=== PATIENT | female | born 1950 | race Caucasian/White ===

== ENCOUNTER 2018-04-01 06:06 | Observation (INO) ==
[2018-04-01] MEDS ORDERED: ceFAZolin Inj 1 GM in Sodium Chlor 0.9% Inj 100 ML IV.SIG SCH (07:00)
[2018-04-01] MEDS ORDERED: Heparin - SQ 10,000 UNITS/ML Vial SQ SCH (07:00)
[2018-04-01] MEDS ORDERED: Heparin - SQ 10,000 UNITS/ML Vial ONE (07:07)
[2018-04-01] MEDS ORDERED: Sodium Chlor 0.9% Inj 100 ML ONE (07:07)
[2018-04-01] MEDS ORDERED: ceFAZolin Inj 1 GM Vial (Addvantage) IV.SIG ONE (07:07)
[2018-04-01] MEDS ORDERED: Chlorhexidine Gluconate 2% 1 Pack (2 Cloths) TOPICAL ONE (07:30)
[2018-04-01] MEDS ORDERED: Metoprolol Tartrate 25 MG Tablet PO ONE (07:30)
[2018-04-01] MEDS ORDERED: Sodium Chlor 0.9% Inj 500 ML IV.CONT ONE (07:30)
[2018-04-01] MEDS ORDERED: Sugammadex Inj 200 MG/2 ML Vial IV.PUSH ONE (07:38)
[2018-04-01] MEDS ORDERED: Lidocaine 1%/Epinephrine 1:100,000 Inj 30 ML Vial ONE (07:58)
[2018-04-01] MEDS ORDERED: LORazepam 0.5 MG Tablet PO PRN (12:59)
[2018-04-01] MEDS ORDERED: fentaNYL Citrate Inj 100 MCG/2 ML Ampul ONE (13:23)
[2018-04-01] MEDS ORDERED: Morphine Inj 4 MG/ML Vial ONE (13:24)
[2018-04-01] MEDS ORDERED: KCL 20 mEq/D5W/NaCl 0.45% Inj 1,000 ML ONE (13:48)
[2018-04-01] MEDS: KCL 20 mEq/D5W/NaCl 0.45% Inj 1,000 ML IV.CONT SCH (14:00)
[2018-04-01] MEDS ORDERED: Ketorolac Inj 30 MG/ML (IVP) Vial ONE (14:55)
[2018-04-01] MEDS ORDERED: Ketorolac Inj 30 MG/ML (IVP) Vial IV.PUSH SCH (15:00)
[2018-04-01] MEDS ORDERED: *Meperidine Inj 25 MG/ML Vial PERIprocedural Use ONLY ONE (15:06)
[2018-04-01] MEDS: Ketorolac Inj 30 MG/ML (IVP) Vial IV.PUSH SCH (17:57)
[2018-04-02] MEDS: Ketorolac Inj 30 MG/ML (IVP) Vial IV.PUSH SCH ×2 (00:18→06:20)
[2018-04-02] MEDS: KCL 20 mEq/D5W/NaCl 0.45% Inj 1,000 ML IV.CONT SCH ×2 (00:19→09:39)
[2018-04-02 06:34] LABS: Baso % (Auto) 0.1 % (0.0-2.0); Hematocrit 34.4 % (35.0-46.0); Hemoglobin 11.9 gm/dL (11.6-15.3); Lymph # (Auto) 1.1 th/mm3 (1.0-4.8); Lymph % (Auto) 12.5 % (9.0-44.0); Mean Corpuscular HGB Conc 34.6 % (32.0-36.0); Mean Corpuscular Hemoglobin 31.1 pg (27.0-34.0); Mean Corpuscular Volume 89.8 fL (80.0-100.0); Mean Platelet Volume 9.4 fL (7.0-11.0); Mono # (Auto) 0.7 th/mm3 (0.0-0.9); Neut # (Auto) 6.8 th/mm3 (1.8-7.7); Neut % (Auto) 79.4 % (16.0-70.0); Platelet Count 181 th/mm3 (150-450); Red Blood Count 3.83 mil/mm3 (4.00-5.30); Red Cell Distribution Width 13.4 % (11.6-17.2); White Blood Count 8.5 th/mm3 (4.0-11.0)
--- NOTE | 2018-04-02 07:04 | P.PNONC ---
Subjective Interval history: post op day 1 patient resting in bed no complaints states pain is controlled with Percocet denies n/v Delagdo D/C'd OK to discharge home after void Ok to resume home meds follow up in obstetrician gynecologist/onc clinic in 2 weeks for final pathology review post op instructions and restrictions Objective Vital Signs/Intake & Output: Vital Signs 04/01/18 13:15 04/01/18 13:30 04/01/18 13:45 Temperature 98.3 F Pulse Rate 89 100 H 102 H Respiratory Rate 12 15 15 Blood Pressure 139/69 140/77 145/67 H Pulse Oximetry 100 96 98 04/01/18 14:00 04/01/18 14:15 04/01/18 14:30 Temperature Pulse Rate 102 H 101 H 103 H Respiratory Rate 15 15 15 Blood Pressure 153/76 H 148/67 H 150/73 H Pulse Oximetry 99 100 98 04/01/18 14:45 04/01/18 15:00 04/01/18 15:30 Temperature Pulse Rate 102 H 101 H 100 H Respiratory Rate 15 16 16 Blood Pressure 151/70 H 141/70 H 137/69 Pulse Oximetry 98 97 98 04/01/18 15:40 04/01/18 16:00 04/01/18 17:00 Temperature Pulse Rate 99 H 98 H Respiratory Rate 15 15 16 Blood Pressure 149/70 H 144/78 H Pulse Oximetry 98 94 L 04/01/18 18:00 04/01/18 18:10 04/01/18 18:15 Temperature 97.6 F Pulse Rate 102 H 103 H Respiratory Rate 16 16 Blood Pressure 150/73 H 146/75 H Pulse Oximetry 94 L 95 95 04/01/18 18:30 04/01/18 20:00 04/02/18 00:00 Temperature 98.8 F 99.7 F H 98.9 F Pulse Rate 108 H 107 H 103 H Respiratory Rate 16 16 16 Blood Pressure 153/81 H 143/88 H 111/69 Pulse Oximetry 95 95 97 04/02/18 04:00 Temperature 98.1 F Pulse Rate 95 H Respiratory Rate 16 Blood Pressure 113/77 Pulse Oximetry 98 Intake & Output 04/01/18 04/02/18 04/02/18 18:59 06:59 18:59 Intake Total 1800 / 1800 1240 / 1240 Output Total 1955 / 1955 1275 / 1275 Balance -155 / -155 -35 / -35 Weight 74.8 kg Intake: IV 1000 / 1000 D5W/1/2NS + KCL 20 mEq Inj 1, 1000 / 1000 000 ML @ 125 mls/hr IV.CONT . Q8H RUBI Rx#:[id number] Oral 240 / 240 Anesthesia Amount 1800 / 1800 Output: Urine 855 / 855 1275 / 1275 Estimated Blood Loss 150 / 150 Urine Amount (Catheter) 950 / 950 Indwelling Urethral Catheter 950 / 950 Result Diagrams: 04/02/18 06:04 04/02/18 06:04 Laboratory Results: Laboratory Results - last 24 hr 04/01/18 04/02/18 06:55 06:04 WBC 8.5 RBC 3.83 L Hgb 11.9 Hct 34.4 L MCV 89.8 MCH 31.1 MCHC 34.6 RDW 13.4 Plt Count 181 MPV 9.4 Neut % (Auto) 79.4 H Lymph % (Auto) 12.5 Luce % (Auto) 8.0 Eos % (Auto) 0.0 Baso % (Auto) 0.1 Neut # (Auto) 6.8 Lymph # (Auto) 1.1 Luce # (Auto) 0.7 Eos # (Auto) 0.0 Baso # (Auto) 0.0 WBC Differential . Differential Comment Auto diff final Blood Type O Negative Blood Type Recheck Required Antibody Screen Negative Medications: Active Medications Generic Name Dose Route Start Last Admin Trade Name Freq PRN Reason Stop Dose Admin Heparin Sodium (Porcine) 5,000 units 04/01/18 07:00 04/01/18 07:11 Heparin Inj SQ 04/04/18 06:59 5,000 units JOINT RUNNER RUBI Administration Cefazolin Sodium 1 gm/ Sodium 100 mls @ 200 mls/hr 04/01/18 07:00 04/01/18 08 :44 Chloride IV.SIG 04/04/18 06:59 200 mls/hr JOINT RUNNER RUBI Administration Lactated Ringer's 1,000 mls @ 30 mls/hr 04/01/18 07:30 04/01/18 06:30 Lr 1000 Ml Inj IV.CONT 04/02/18 07:29 30 mls/hr .Q24H ONE Administration Potassium Chloride/Dextrose/Sod Cl 1,000 mls @ 125 mls/hr 04/01/18 13:00 02/08 00:19 D5w/1/2ns + Kcl 20 Meq Inj IV.CONT 125 mls/hr .Q8H RUBI Administration Ketorolac Tromethamine 15 mg 04/01/18 18:00 04/02/18 06:20 Toradol Inj IV.PUSH 04/02/18 12:01 15 mg Q6H RUBI Administration Oxycodone/Acetaminophen 1 tab 04/01/18 12:59 04/02/18 04:47 Percocet 5/325 Mg PO 1 tab Q4H PRN Administration PAIN SCALE 1 TO 5 Sodium Chloride 2 ml 04/01/18 21:00 04/01/18 20:09 Ns Flush IV.FLUSH Not Given BID RUBI Objective Remarks: GENERAL: Well-nourished, well-developed patient. SKIN: Warm and dry. HEAD: Normocephalic. EYES: No scleral icterus. No injection or drainage. CARDIOVASCULAR: Regular rate and rhythm without murmurs. RESPIRATORY: Breath sounds equal bilaterally. No accessory muscle use. GASTROINTESTINAL: Abdomen soft, non-tender, nondistended. SS are C/D/I EXTREMITIES:teds and scds MUSCULOSKELETAL: Adequate muscle tone. NEUROLOGICAL: No obvious focal deficit. Awake, alert, and oriented x3. PSYCHIATRIC: Appropriate mood and affect; insight and judgment normal. Assessment/Plan - Plan post op day #1 s/p RA lap hyst with SLN mapping pt meets criteria for discharge home today after first void ok to resume home meds f/u in obstetrician gynecologist/onc clinic in 2 weeks for final path Percocet 5/325 1 PO q 4 hours prn pain #42 script in chart patient instructed to contact office with any problems ok to D/C IVF and tele, RN notified
[2018-04-02 07:20] LABS: Anion Gap 9 meq/L (5-15); Blood Urea Nitrogen 6 mg/dL (7-18); Calcium 7.9 mg/dL (8.5-10.1); Carbon Dioxide 26.4 meq/L (21.0-32.0); Chloride 105 meq/L (98-107); Glomerular Filtration Rate Greater Than 89 mL/min (>89); Glucose,Random 113 mg/dL (74-106); Potassium 3.4 meq/L (3.5-5.1); Sodium 140 meq/L (136-145)
[2018-04-02] MEDS ORDERED: Pantoprazole Sodium 20 MG DR Tablet PO SCH (09:00)
[2018-04-02] MEDS ORDERED: Levothyroxine 100 MCG Tablet PO SCH (09:00)
--- NOTE | 2018-04-05 14:51 | MP ---
cc: Patrica Brennan MD, Wendell MD Naspbhairo, Vijaya MD DATE OF OPERATION: 04/01/2018 PREOPERATIVE DIAGNOSIS: Endometrial adenocarcinoma. POSTOPERATIVE DIAGNOSIS: Endometrial adenocarcinoma. PROCEDURE: Robotic-assisted laparoscopic hysterectomy and bilateral salpingo-oophorectomy, sentinel lymph node mapping and excision with bilateral pelvic lymph node excision biopsies. 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 ANESTHESIA: General endotracheal anesthesia. ESTIMATED BLOOD LOSS: 150 mL IV FLUIDS: 1600 mL URINE OUTPUT: 855 mL HISTORY: This is a 68-year-old female with postmenopausal bleeding and thickened endometrial stripe on ultrasound. Biopsy showed grade 1 endometrial adenocarcinoma. She was counseled. She was in favor of surgical management. She was in favor of sentinel lymph node mapping and selective lymph node biopsies and excision, and preferred to try to avoid full lymphadenectomy in an effort to avoid potential morbidity. She had seen other physicians prior to seeing me, which had her present being relatively well informed and with some formulated ideas. She is seen again in the preop holding area where the plan is again discussed and reviewed. She is in favor of blue dye method of sentinel lymph node mapping and excision, as well as removing any other lymph nodes that were prominent or appeared abnormal, but with the goal to preserve normal appearing lymphatics to the extent possible in an effort to reduce morbidity. FINDINGS: Uterine cavity sounded to approximately 7 cm - 8 cm. The tubes and ovaries grossly appeared normal. There was a clear and large deep blue stained lymph node at the bifurcation of the right external and internal iliac vessels. There were subtle blue hue and a lymph node in the distal obturator space on the left; uncertain if this represented sentinel lymph node. There were some prominent lymph nodes in the obturator space on the left as well as the proximal external iliac artery on the left. In addition to the enlarged blue sentinel node, there were a couple of enlarged nodes or groups of nodes along the external iliac and extending toward the obturator space on the right and the aforementioned lymph nodes were each removed. The uterus, once removed, showed the tumor to be approximately 4 cm; invaded into the wall of the uterus right at an estimated 50% depth of invasion. There was no endocervical extension. DESCRIPTION OF PROCEDURE: She was taken to the operating room and placed in dorsal lithotomy position, after general endotracheal anesthesia was administered. A timeout was undertaken. She was identified by site recognition and hospital ID bracelet and the proposed procedure was reviewed and confirmed. She was carefully positioned in padded Dex stirrups. Her arms were padded and secured to the sides. She was further secured to the operating table with egg crate padding and tape in cross-chest over the shoulder fashion. All sites noted to be properly aligned with no malalignments or pressure points. She was prepped in sterile fashion and draped below the waist, placed in high lithotomy position. The cervix was grasped. Uterine cavity sounded. Dilute methylene blue was injected, 1 mL approximately 1 cm deep and then another mL superficially at the 3 o'clock position on the left cervix. Similarly, approximately 1 mL approximately 1 cm deep and again another mL superficially at the 9 o'clock position on the right side of the cervix. The cervix was dilated. Standard VCare manipulator was inserted and secured in usual fashion. Delgado catheter was placed in the bladder. She was returned to low lithotomy position. Change of sterile gloves was taken. We completed draping in anticipation of laparoscopy and confirmed that an orogastric tube was in the stomach on suction. With manual elevation of the abdominal wall and direct laparoscopic visualization, a 5 mm cannula was introduced. Carbon dioxide gas was insufflated and an atraumatic entry was confirmed. A 12 mm cannula was placed in the midline above the umbilicus, 8 mm cannula placed in the right upper quadrant and left lateral quadrant and left lower abdomen and the original 5 mm was exchanged for an 8 mm cannula. She was placed in Trendelenburg position. Peritoneal washings were obtained for cytology. The anatomy was surveyed that showed no obvious peritoneal implants. The robotic system was brought into the operative field and attached in the usual fashion. Monopolar scissors, fenestrated bipolar forceps and ProGrasp manipulators placed in arms #1, 2, and 3 respectively and I took my place at the surgeon's console. The right retroperitoneal space was opened. The right round ligament was isolated, cauterized and transected. The retroperitoneal dissection was continued. The right ureter was identified. The right infundibulopelvic ligament was isolated. The intervening peritoneum was opened and the infundibulopelvic ligament was cauterized and transected. The paravesical obturator and perirectal spaces were opened. Deep blue staining and large lymph node found by the bifurcation of the iliac vessels; clearly a sentinel lymph node. Dissection was initiated here, which was associated with some bleeding. Focal cautery and then this was packed with a Ray-Mairsa sponge and the remainder of the lymph nodes were inspected. There were some prominent lymph nodes in the distal external iliac extending past the external iliac vein toward the obturator space, and these prominent lymph nodes were isolated with cautery circumferentially and were sharply removed and placed on a Ray-Marisa sponge in the right pericolic gutter for later retrieval. Attention was directed toward the left side. The left round ligament was isolated, cauterized and transected. The anterior and posterior leaves of the broad ligament were opened. Left ureter was identified. Left infundibulopelvic ligament was isolated. The intervening peritoneum was opened. The infundibulopelvic ligament was cauterized and transected at the level of the pelvic brim. The posterior peritoneum was opened along the left side of uterus and cervix. The left pararectal, paravesical and obturator spaces were developed. There were no deeply stained blue nodes that were visible; however, there was some blue hue to prominent lymph node in the distal obturator space. This node or group of nodes was isolated with bipolar cautery and removed from the ventral surface of the obturator nerve. Additionally, another prominent lymph node at the bifurcation of the common iliac to the external iliac artery was isolated, cauterized, and removed and placed on Ray-Marisa sponges for later retrieval. The uterine vessels were skeletonized bilaterally and the vesicouterine peritoneum was dissected off the lower uterine segment and cervix. The uterine vessels were isolated bilaterally where they were cauterized, transected, as were the cardinal, paracervical and uterosacral ligaments, thereby freeing the attachments bilaterally. A circumferential colpotomy was performed the cervix from the upper vagina and the specimen was withdrawn transvaginally which included uterus, cervix, tubes and ovaries and the pneumo-occluder balloon was placed in the vagina to maintain pneumoperitoneum. The vaginal cuff was closed. Instruments 1 and 3 exchanged for needle drivers as a 0-Vicryl suture was introduced. The vaginal cuff was secured full thickness with 0-Vicryl suture, incorporating the uterosacral ligament and the posterior peritoneum and tied via instrument tie. It was held and countertraction as a running continuous closure was carried across the vaginal cuff and secured similarly at the right corner, tied and the suture was cut and removed. The bladder integrity was checked by filling the bladder with saline dyed with methylene blue, confirming the bladder wall to be intact. There was a good margin between the vaginal cuff suture line and the edge of the bladder. The bladder was therefore drained. The neurovascular structures were intact bilaterally. Good peristalsis of ureters. Attention was redirected to the sentinel lymph node, where the dissection was reinitiated broad to this lymph nodes, taking some surrounding lymphatic tissue. With bipolar cautery and sharp dissection, was able to free up the surrounding tissue and lift this node away from the obturator nerve and away from the bifurcation of the vessels circumferentially until the entire sentinel lymph node was removed and placed in the right pericolic gutter for later retrieval. The lymphatic basins were inspected. Again, all of the prominent lymph nodes in addition to the sentinel lymph node were removed with remaining normal appearing lymphatics. The periaortic and pericaval spaces were inspected visibly and palpably and there was no drainage of blue dye detected. No enlarged lymph nodes detected. Accordingly, it was felt that all reasonable surgical objectives in keeping with her pre-established discussion had been completed. Therefore, the robotic instruments were removed. The robotic system was disengaged from the operative field and I reentered the bedside under sterile condition. An EndoCatch bag was used to capture all of the lymph nodes, which were then into right sentinel lymph node, right pelvic lymph nodes and left pelvic lymph nodes. Next, each of the 3 Ray-Marisa sponges that were placed in the peritoneal cavity were removed through the 12 mm cannula. Each were inspected and noted to be removed in their entirety. Visual inspection confirmed there were no remaining foreign objects in the peritoneal cavity. Preliminary counts were correct. All sites were hemostatic. The 12 mm fascial defect was closed with interrupted 0-Vicryl sutures using a needle fascia pass and closure apparatus tied securely. The fascia was hemostatic and airtight. The remaining cannulas were withdrawn. Carbon dioxide gas was removed; 3-0 Vicryl subcutaneous and 3-0 Vicryl subcuticular were used to close these incisions. She was returned to dorsal lithotomy position. Pelvic exam confirmed the vaginal cuff was well supported. There were no remaining foreign objects in the vagina. Final counts were correct and she was returned to low lithotomy position. She was pending reversal of anesthesia, when I left the operating room precede her to the postanesthesia care unit. MD BETH Villafuerte/walker , 01:56 PM , 02:12 PM
== END 2018-04-02 11:02 | disposition home or self-care (01) ==
LOC: HSDC 06:06 → HSDI 06:06 → HCIN 18:22
PROVIDERS: ADMIT Obstetrics & Gynecology Gynecologic Oncology; ATTEND Obstetrics & Gynecology Gynecologic Oncology
DX: I10 Essential (primary) hypertension; C54.1 Malignant neoplasm of endometrium; N95.0 Postmenopausal bleeding; K21.9 Gastro-esophageal reflux disease without esophagitis; Z87.891 Personal history of nicotine dependence; E78.5 Hyperlipidemia, unspecified
CPT/HCPCS: 80048; 85025; 86850; 86900; 86901; 88112; 88307; 88309; 88331; 90765; 90766; 90775; 90776; 94150; 96365; 96366; 96375; 96376; G0378; J0131; J0690; J1644; J1885; J2175; J2250; J2270; J3010; J3480; J7120